=== PATIENT | female | born 1985 | race African-American/Black ===

== ENCOUNTER 2022-08-14 09:34 | Emergency (ER) | payer SELFPAY ==
[~2022-08-14] VITALS: Ht 167.6 cm; Wt 68.0 kg
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
--- NOTE | 2022-08-14 10:07 | NUR ---
PICKED UP BY [facility]
--- NOTE | 2022-08-14 10:22 | NUR ---
pt returned from radiology
[2022-08-14] MEDS ORDERED: CARI350T PO (10:50)
[2022-08-14 10:57] VITALS: BP 112/70
--- NOTE | 2022-08-14 10:57 | NUR ---
Patient discharged to home in stable condition. Written and verbal after care instructions given. Patient verbalizes understanding of instruction.
== END 2022-08-14 10:57 | disposition home or self-care (01) ==
LOC: ER 09:41
DX: S13.4XXA Sprain of ligaments of cervical spine, initial encounter (principal); S43.402A Unspecified sprain of left shoulder joint, initial encounter; Z60.2 Problems related to living alone; Z79.899 Other long term (current) drug therapy; V49.9XXA Car occupant (driver) (passenger) injured in unspecified traffic accident, initial encounter; Y93.89 Activity, other specified; Y92.89 Other specified places as the place of occurrence of the external cause; Y99.8 Other external cause status
CPT/HCPCS: 72050-TC; 73030-TC